=== PATIENT | female | born 1955 | race Caucasian/White ===

== ENCOUNTER → 2020-11-16 | Outpatient (CLI) | payer MEDICARE, OTHER ==
[~2020-11-16] MED LIST: ADVAIR 500-501 EACH INH; ALBUTEROL0.63 MG/3 INH; CETIRIZINE HCL10 MG PO; HABITROL 21 MG P1 EA TD; LEVOTHYROXINE25 MCG PO; LISINOPRIL30 MG PO; MEDROL DOSEPAK 24 MG PO; MONTELUKAST SOD10 MG PO; MUCINEX600 MG PO; NORVASC 5 MG TAB5 MG PO; PROTONIX40 MG PO; SILDENAFIL20 MG PO; SIMVASTATIN20 MG PO; SYMBICORT 16010.2 GM INH; TAMIFLU75 MG PO; TYLENOL 325MG325 MG PO; VENTOLIN HFA 66.7 GM INH; ZANTAC 150 MG150 MG PO
== END ==
LOC: EXRD 08:57
DX: M85.88 Other specified disorders of bone density and structure, other site (principal); M81.0 Age-related osteoporosis without current pathological fracture; M85.852 Other specified disorders of bone density and structure, left thigh
CPT/HCPCS: 77080

== ENCOUNTER → 2021-07-31 | Outpatient (CLI) | payer MEDICARE, OTHER | LOC: KOH-I 14:00 | DX: F17.210 Nicotine dependence, cigarettes, uncomplicated (principal); R91.8 Other nonspecific abnormal finding of lung field; N28.9 Disorder of kidney and ureter, unspecified | CPT/HCPCS: 71271 ==